=== PATIENT | female | born 1985 | race Caucasian/White ===

== ENCOUNTER 2020-08-24 10:39 | Emergency (ER) | payer BC ==
[~2020-08-24] VITALS: Ht 172.7 cm; Wt 54.4 kg
[2020-08-24] MEDS ORDERED: ALLEGRA ALLERG180 MG PO (11:30)
[2020-08-24] MEDS ORDERED: DUI500 PO (11:30)
[2020-08-24] MEDS ORDERED: KETO10TA2 PO (11:30)
== END 2020-08-24 11:46 | disposition home or self-care (01) ==
LOC: ER 10:39
DX: L03.115 Cellulitis of right lower limb (principal)

== ENCOUNTER 2022-06-26 09:09 | Emergency (ER) | payer BC ==
[~2022-06-26] VITALS: Ht 172.7 cm; Wt 54.4 kg
[~2022-06-26 09:09] MED LIST: ALLEGRA ALLERG180 MG PO; DUI500 PO; KETO10TA2 PO
== END 2022-06-26 12:57 | disposition home or self-care (01) ==
LOC: ER 09:09
DX: S69.92XA Unspecified injury of left wrist, hand and finger(s), initial encounter (principal); Y93.73 Activity, racquet and hand sports; Y92.312 Tennis court as the place of occurrence of the external cause